=== PATIENT | female | born 1980 | race Hispanic/Latino ===

== ENCOUNTER 2022-12-10 11:42 | Emergency (ER) | payer MEDICARE ==
[~2022-12-10] VITALS: Ht 160 cm; Wt 62.6 kg
[2022-12-10] MEDS ORDERED: PAXLOVID 300-11 EACH PO (12:17)
[2022-12-10] MEDS ORDERED: BENZONATATE200 MG PO (12:17)
[2022-12-10] MEDS ORDERED: ALBUTEROL2.5 MG/0.5 PO (12:17)
[2022-12-10] MEDS ORDERED: DEXAMETHASONE6 MG PEG (12:17)
== END 2022-12-10 12:23 | disposition home or self-care (01) ==
LOC: ER 11:45
DX: R05.9 Cough, unspecified (principal); U07.1 COVID-19; R07.89 Other chest pain
CPT/HCPCS: 99283